=== PATIENT | male | born 1985 | race Caucasian/White ===

== ENCOUNTER 2019-07-26 10:49 | Emergency (ER) | payer OTHER ==
[~2019-07-26] VITALS: Ht 182.9 cm; Wt 86.2 kg
[2019-07-26] MEDS ORDERED: AMOXICILLIN 50500 MG PO (12:29)
[2019-07-26 12:40] VITALS: BP 133/87
== END 2019-07-26 12:41 | disposition home or self-care (01) ==
LOC: M.ERS 10:49
DX: J06.9 Acute upper respiratory infection, unspecified (principal); F32.9 Major depressive disorder, single episode, unspecified; G89.29 Other chronic pain; M54.9 Dorsalgia, unspecified; M79.604 Pain in right leg; F17.200 Nicotine dependence, unspecified, uncomplicated; Z88.1 Allergy status to other antibiotic agents